=== PATIENT | female | born 1990 | race Caucasian/White ===

== ENCOUNTER 2023-09-22 22:38 | Emergency (ER) | payer MEDICAID ==
[~2023-09-22] VITALS: Ht 167.6 cm; Wt 70.0 kg
[2023-09-22 22:40] VITALS: O2SAT 100
[2023-09-22 23:19] LABS: BASOPHILS % 1.3 % (0.0-2.0); EOSINOPHILS % 1.9 % (0.0-5.0); HEMATOCRIT. 41.4 % (36.0-48.0); HEMOGLOBIN. 13.9 g/dL (12.0-16.0); LYMPHOCYTES % 27.1 % (20.0-50.0); MEAN CORPUSCULAR HEMOGLOBIN 30.4 pg (28.0-32.0); MEAN CORPUSCULAR HGB CONC 33.6 g/dL (31.0-37.0); MEAN CORPUSCULAR VOLUME 90.5 fL (81.0-99.0); MEAN PLATELET VOLUME 6.9 fl (7.4-10.4); MONOCYTES % 7.1 % (2.0-8.0); NEUTROPHILS % 62.6 % (40.0-76.0); PLATELET 329 x1000/uL (130-400); RED BLOOD CELL COUNT 4.58 mill/uL (4.2-5.4); RED CELL DISTRIBUTION WIDTH 13.3 % (11.6-14.6); WHITE BLOOD COUNT 10.2 x1000/uL (4.5-11.0)
[2023-09-22 23:26] LABS: CLARITY URINE CLOUDY (CLEAR); COLOR URINE YELLOW (YELLOW); GLUCOSE URINE NEGATIVE (NEGATIVE); KETONES URINE NEGATIVE (NEGATIVE); LEUKOCYTE ESTERASE URINE TRACE (NEGATIVE); NITRITE URINE NEGATIVE (NEGATIVE); OCCULT BLOOD URINE 3+ (NEGATIVE); PH URINE 6.5 (4.5-8.0); PROTEIN URINE NEGATIVE (NEGATIVE); SPECIFIC GRAVITY URINE 1.016 (1.005-1.030)
[2023-09-22 23:48] LABS: ALANINE AMINOTRANSFERASE 15 IU/L (10-49); ALBUMIN 4.4 g/dL (3.2-4.8); ASPARTATE AMINOTRANSFERASE 17 IU/L (<34); B-HCG QUANTITATIVE 8785 mIU/mL (<3); BILIRUBIN TOTAL 0.5 mg/dL (0.1-1.0); CALCIUM 9.5 mg/dL (8.7-10.4); CARBON DIOXIDE 28 mEq/L (21-32); CHLORIDE 105 mEq/L (98-107); CREATININE 0.6 mg/dL (0.6-1.0); GLUCOSE 133 mg/dL (70-105); POTASSIUM 3.2 mEq/L (3.5-5.1); PROTEIN TOTAL 7.2 g/dL (6.0-8.3); SODIUM 140 mEq/L (136-145); TROPONIN I HIGH SENSITIVITY < 4 ng/L (3.0-34); UREA NITROGEN BLOOD 7 mg/dL (9-23)
[2023-09-22 23:59] LABS: RBC URINE TNTC /hpf (0-2); WBC URINE 0-2 /hpf (0-2)
[2023-09-23] LABS: BACTERIA URINE TRACE; SQUAMOUS EPITHELIAL CELL URINE FEW /lpf (RARE/1+)
[2023-09-23] MEDS ORDERED: MAGNESIUM/ALUMINUM HYDROXIDE/SIMETHICONE 30ML UDC PO ONE (03:30)
[2023-09-23] MEDS ORDERED: ACET-2708 MT (05:44)
[2023-09-23] MEDS ORDERED: CEPH500C2 MT (05:44)
[2023-09-23] MEDS ORDERED: MAG355OR21 MT (05:44)
[2023-09-23 06:32] VITALS: BP 134/76; PULSE 71; RESP 16; TEMP 98.1
== END 2023-09-23 06:33 | disposition home or self-care (01) ==
LOC: ER 22:38
DX: O20.0 Threatened abortion (principal); Z3A.08 8 weeks gestation of pregnancy
CPT/HCPCS: 36415; 76801; 80053; 81003; 81025; 84484; 84702; 85025; 86900; 93005; 99285

== ENCOUNTER 2024-05-30 13:43 | Emergency (ER) | payer MEDICAID ==
[~2024-05-30] VITALS: Ht 157.5 cm; Wt 64.0 kg
[~2024-05-30 13:43] MED LIST: ACET-2708 MT; CEPH500C2 MT; MAG355OR21 MT
[2024-05-30 13:45] VITALS: BP 131/70; PULSE 66; RESP 16; TEMP 98.4; O2SAT 100
[2024-05-30 14:26] LABS: CLARITY URINE CLEAR (CLEAR); COLOR URINE YELLOW (YELLOW); GLUCOSE URINE NEGATIVE (NEGATIVE); KETONES URINE NEGATIVE (NEGATIVE); LEUKOCYTE ESTERASE URINE TRACE (NEGATIVE); NITRITE URINE NEGATIVE (NEGATIVE); OCCULT BLOOD URINE NEGATIVE (NEGATIVE); PROTEIN URINE NEGATIVE (NEGATIVE); SPECIFIC GRAVITY URINE 1.008 (1.005-1.030); UROBILINOGEN URINE 0.2 E.U./dL (0.2-1.0)
[2024-05-30 14:33] LABS: EOSINOPHILS % 0.9 % (0.0-5.0); HEMATOCRIT. 38.8 % (36.0-48.0); HEMOGLOBIN. 13.1 g/dL (12.0-16.0); LYMPHOCYTES % 29.9 % (20.0-50.0); MEAN CORPUSCULAR HEMOGLOBIN 30.6 pg (28.0-32.0); MEAN CORPUSCULAR HGB CONC 33.9 g/dL (31.0-37.0); MEAN CORPUSCULAR VOLUME 90.3 fL (81.0-99.0); MEAN PLATELET VOLUME 7.2 fl (7.4-10.4); MONOCYTES % 5.5 % (2.0-8.0); NEUTROPHILS % 62.7 % (40.0-76.0); PLATELET 313 x1000/uL (130-400); RED CELL DISTRIBUTION WIDTH 13.3 % (11.6-14.6); WHITE BLOOD COUNT 7.4 x1000/uL (4.5-11.0)
[2024-05-30 14:39] LABS: CHLORIDE 104 mEq/L (98-107); POTASSIUM 3.5 mEq/L (3.5-5.1); SODIUM 135 mEq/L (136-145)
[2024-05-30 14:40] LABS: CARBON DIOXIDE 24 mEq/L (21-32)
[2024-05-30 14:41] LABS: CALCIUM 9.6 mg/dL (8.7-10.4)
[2024-05-30 14:45] LABS: RBC URINE 0-2 /hpf (0-2); SQUAMOUS EPITHELIAL CELL URINE 2+ /lpf (RARE/1+); WBC URINE 0-2 /hpf (0-2)
[2024-05-30 14:45] LABS: CREATININE 0.6 mg/dL (0.6-1.0); GLUCOSE 91 mg/dL (70-105)
[2024-05-30 14:46] LABS: UREA NITROGEN BLOOD 8 mg/dL (9-23)
[2024-05-30 14:46] LABS: BACTERIA URINE 1+
[2024-05-30 14:47] LABS: ALANINE AMINOTRANSFERASE 15 IU/L (10-49); ALBUMIN 4.6 g/dL (3.2-4.8); ASPARTATE AMINOTRANSFERASE 19 IU/L (<34)
[2024-05-30 14:48] LABS: BILIRUBIN DIRECT 0.2 mg/dL (<=3.0); BILIRUBIN TOTAL 0.5 mg/dL (0.1-1.0)
[2024-05-30 15:19] LABS: HCG SCREEN POSITIVE
== END 2024-05-30 18:18 | disposition home or self-care (01) ==
LOC: ER 13:43
DX: O26.891 Other specified pregnancy related conditions, first trimester (principal); Z3A.01 Less than 8 weeks gestation of pregnancy; O34.81 Maternal care for other abnormalities of pelvic organs, first trimester; N83.201 Unspecified ovarian cyst, right side
CPT/HCPCS: 36415; 76801; 80048; 80076; 81003; 81025; 84702; 84703; 85025; 99284